=== PATIENT | female | born 1940 | race Caucasian/White ===

== ENCOUNTER 2021-02-20 14:33 | Emergency (ER) | payer MEDICARE, OTHER ==
[~2021-02-20 14:33] MED LIST: AMIODARONE IN DEXTROSE,ISO-OSM 150 MG/100 ML PLAST..BAG IV ONE
[2021-02-20] MEDS ORDERED: SODIUM CHLORIDE 0.9% 1,000 ML IV STA (14:40)
[2021-02-20 14:41] LABS: Glucose,Whole Blood 316 mg/dL (75-99)
[2021-02-20] MEDS ORDERED: DEXTROSE 5% IN WATER 100 ML with AMIODARONE 150 MG IV ONE ×2 (14:55→18:30)
--- NOTE | 2021-02-20 15:10 | XR ---
EXAMINATION TYPE: XR chest 1V portable DATE OF EXAM: 02/20/2021 COMPARISON: NONE HISTORY: Pain TECHNIQUE: Single frontal view of the chest is obtained. FINDINGS: There is no focal air space opacity, pleural effusion, or pneumothorax seen. The cardiac silhouette size is within normal limits. The osseous structures are intact. ET and NG tube noted. H eart is prominent. Hyperinflation suggests COPD thoracic aorta is enlarged measuring 4.8 cm. IMPRESSION: 1. COPD with cardiomegaly correlate for thoracic aortic aneurysm
--- NOTE | 2021-02-20 15:11 | XR ---
EXAMINATION TYPE: XR pelvis AP view DATE OF EXAM: 02/20/2021 CLINICAL HISTORY: Unresponsive. GI bleed. TECHNIQUE: A single AP view of the pelvis is obtained. COMPARISON: None. FINDINGS: Osseous structures are demineralized which is noted to lower radiographic sensitivity. Over lying Watson catheter is felt present. Moderate axial joint space loss both hips with moderate to lucille re bilateral spurring. Pubic symphysis is intact. Sacroiliac joints are preserved. Moderate to severe overlying arterial vascular calcification. No acute displaced pelvic fracture identified. IMPRESSION: As above.
[2021-02-20 15:14] LABS: Basophils # (A) 0.1 k/uL (0-0.2); Basophils % (A) 0 %; Eosinophils % (A) 0 %; HCT 23.3 % (34.0-46.0); Hypochromasia Marked; Lymphocytes # (A) 3.4 k/uL (1.0-4.8); Lymphocytes % (A) 20 %; MCH 27.3 pg (25.0-35.0); MCHC 28.4 g/dL (31.0-37.0); MCV 96.2 fL (80.0-100.0); Mean Platelet Volume 8.4; Monocytes # (A) 0.9 k/uL (0-1.0); Monocytes % (A) 5 %; Neutrophils # (A) 11.9 k/uL (1.3-7.7); Neutrophils % (A) 72 %; Platelet Count 241 k/uL (150-450); RBC 2.42 m/uL (3.80-5.40); RDW 15.9 % (11.5-15.5); WBC 16.5 k/uL (3.8-10.6)
[2021-02-20 15:18] LABS: Calcium 7.4 mg/dL (8.4-10.2); Magnesium 2.2 mg/dL (1.6-2.3); Potassium 5.1 mmol/L (3.5-5.1); Total Bilirubin 0.3 mg/dL (0.2-1.3); Total Protein 4.4 g/dL (6.3-8.2)
[2021-02-20 15:39] LABS: INR 1.2 (<1.2); Partial Thromboplastin Time 35.5 sec (22.0-30.0); Prothrombin Time 12.4 sec (9.0-12.0)
[2021-02-20] MEDS ORDERED: MIDAZOLAM 1 MG/ML 5 ML VIAL IV STA ×2 (15:40→18:42)
[2021-02-20 15:48] LABS: HGB 6.6 gm/dL (11.4-16.0)
--- NOTE | 2021-02-20 16:09 | ED ---
GI Bleed HPI - General Chief complaint: GI Bleed Stated complaint: Unresponsive,GI Bleed Source: EMS Mode of arrival: EMS - History of Present Illness Initial comments: 81 year old female presents with past medical history of hypertension and cataracts who presents to the emergency department. She called EMS for shortness of breath. EMS arrived on scene and found a sick-appearing female that had a bloody emesis on her shirt. She stood up from her chair and promptly went unresponsive. They got her in the back of the ambulance and she was found to be bradycardic and hypotensive. She was completely unresponsive and therefore was intubated using an 8 cm ET tube, 25 cm at the lip. She was given 2 doses of push dose epi and a dose of atropine with improvement in her blood pressures. She had seizure-like activity after intubation and therefore was given 5 mg of Versed by configuration management architect. She arrives to us with a pulse is placed on the vent. Son presents to the hospital and states that he came home from work and found her on well on the couch. He notes some abdominal pain. She was having some vomiting which was grossly bloody. She has not had any complaints previous to this. No previous cardiac history. The remainder of the HPI is limited - Related Data Home Medications Medication Instructions Recorded Confirmed Metoprolol Tartrate [Lopressor] 50 mg PO HS 09/18/15 02/20/21 cloNIDine HCL [Catapres] 0.2 mg PO BID 09/18/15 02/20/21 Ipratropium-Albuterol Nebulize 3 ml INHALATION RT-QID PRN 02/20/21 02/20/21 [Duoneb 0.5 mg-3 mg/3 ml Soln] amLODIPine [Norvasc] 5 mg PO HS 02/20/21 02/20/21 Allergies Allergy/AdvReac Type Severity Reaction Status Date / Time procaine HCl [From Novocain] Allergy passed out Verified 02/20/21 14:52 after novocain in dentist office Review of Systems ROS Statement: Those systems with pertinent positive or pertinent negative responses have been documented in the HPI. ROS Other: All systems not noted in ROS Statement are negative. Past Medical History Past Medical History: Eye Disorder, Hypertension Additional Past Medical History / Comment(s): CATARACTS History of Any Multi-Drug Resistant Organisms: None Reported Past Surgical History: Tonsillectomy Additional Past Surgical History / Comment(s): LUMP REMOVED FROM RIGHT ARM. LT CATARACT REMOVED Past Anesthesia/Blood Transfusion Reactions: No Reported Reaction Additional Past Anesthesia/Blood Transfusion Reaction / Comment(s): PASSED OUT AFTER NOVOCAINE Past Psychological History: No Psychological Hx Reported Smoking Status: Unknown if ever smoked Past Alcohol Use History: None Reported Past Drug Use History: None Reported - Past Family History Mother Family Medical History: Diabetes Mellitus, Myocardial Infarction ([place]) Father Additional Family Medical History / Comment(s): AORTIC ANEURYSM Sister(s) Family Medical History: Diabetes Mellitus Daughter(s) Family Medical History: Diabetes Mellitus General Exam Limitations: altered mental status, physical limitation General appearance: obtunded, in distress Head exam: Present: atraumatic, normocephalic, normal inspection Eye exam: Present: other (4 mm, non reactive) Respiratory exam: Present: normal lung sounds bilaterally, other (bagged). Absent: respiratory distress, wheezes, rales, rhonchi, stridor Cardiovascular Exam: Present: regular rate, irregular rhythm (multiple PVCs with intermittent episodes of nonsustained V. tach), normal heart sounds. Absent: systolic murmur, diastolic murmur, rubs, gallop, clicks GI/Abdominal exam: Present: distended, tenderness, guarding, diminished bowel sounds Rectal exam: Present: decreased rectal tone, heme (-) stool, hemorrhoids Extremities exam: Present: normal inspection, full ROM, normal capillary refill. Absent: tenderness, pedal edema, joint swelling, calf tenderness Neurological exam: Present: altered Skin exam: Present: pallor Course Vital Signs 02/20/21 02/20/21 02/20/21 14:35 14:48 14:53 Temperature 91.9 F L 93.6 F L Pulse Rate 99 108 H 105 H Respiratory 18 14 Rate Blood Pressure 141/89 149/112 92/78 O2 Sat by Pulse 100 Oximetry 02/20/21 02/20/21 02/20/21 15:01 15:06 15:45 Temperature 94.5 F L 94.6 F L 94.3 F L Pulse Rate 89 77 65 Respiratory 14 14 20 Rate Blood Pressure 99/80 112/63 93/52 O2 Sat by Pulse 99 100 100 Oximetry 02/20/21 02/20/21 02/20/21 15:56 16:08 16:18 Temperature 94.5 F L 94.3 F L Pulse Rate 65 65 63 Respiratory 20 20 22 Rate Blood Pressure 81/42 90/53 113/67 O2 Sat by Pulse 100 100 Oximetry 02/20/21 02/20/21 02/20/21 16:25 16:31 16:41 Temperature 94.3 F L 94.1 F L 94.1 F L Pulse Rate 64 64 61 Respiratory 22 20 20 Rate Blood Pressure 110/65 109/66 125/74 O2 Sat by Pulse 100 100 100 Oximetry 02/20/21 02/20/21 02/20/21 17:21 18:21 18:48 Temperature 95.5 F L Pulse Rate 65 79 68 Respiratory 16 20 28 H Rate Blood Pressure 106/71 112/66 143/74 O2 Sat by Pulse 100 100 100 Oximetry - Reevaluation(s) Reevaluation #1: Speaking with Dr. Fletcher - looking at images and will call back 02/20/21 1415 Reevaluation #2: Speaking with Dr. Fletcher - does not believe the patient has a ruptured AAA but ischemic bowel. Recommending general surgery consult or transfer to higher level of care ideally 02/20/21 1647 Reevaluation #3: 02/20/21 17:39 Calling [facility] for transfer. 02/20/21 17:52 Not accepting transfers Reevaluation #4: Spoke with Dr. Galeano - states he will not operate on the patient without a vascular surgeon available and capable of handling ruptured AAA 02/20/21 17:[address] Fletcher - believes this is a general surgery issue and needs to be deferred to general surgeon 02/20/21 20:36 Reevaluation #5: 02/20/21 18:28 [facility] called back - spoke with Dr. Carrero - patient will be transported to [facility] CAT 1 Medical Decision Making - Medical Decision Making On arrival patient is placed in trauma bay 1. A thorough exam is performed. She does have stable blood pressure and pulse at this time. A bedside ultrasoun d is performed which does demonstrate an enlarged aorta measuring 5.0 cm. abdomen is tense. Laboratory studies are conducted. Patient did receive 2 L of fluid prehospital. Patient is type and crossmatch for 2 units. OG tube was placed which does have 500 mL of dark bloody fluid return. Patient does go for CT of her brain, cervical spine as well as chest abdomen pelvis angio. Patient does have an episode of nonsustained V. tach. She was given 150 mL bolus of amiodarone. 3 studies are obtained white count is 16.5. Hemoccult and 6.6. INR 1.2. CO2 is 7. A lactic acid 14.2. Stool occult is negative for blood. Gastric occult is positive. CT of the brain and x-rays of acute renal hem orrhage, mass effect or midline shift. Patient does have some movement on the vent and therefore 2 mg of Versed is ordered every [address] of the patient's abdomen and pelvis demonstrates abdominal aortic aneurysm rupture with abnormal heterogenicity outside the calcified rim of the AAA. Internal air with an aortic lumen concerning for fistulous claudication to the adjacent duodenum. Abnormal wall thickening prominence of small bowel loops throughout the abdomen into the pelvis concerning for developing ischemic change. I did call and speak with Dr. Fletcher. He feels that the patient is suffering from ischemic bowel and not ruptured AAA. I spoke then with Dr. Galeano who is concerned for AAA. Both surgeons feel that the patient needs higher level of care. I did call and leave the patients info with Scout Jarvis. A call was then made to Rosanne who refused patient. I was on the line with Leena when I did receive a call back from Scout Jarvis accepting the patient. Accepting physician is Dr. Carrero and Dr. Bernardo - patient will go to [facility]. Sons updated as to poor prognosis. - Lab Data Result diagrams: 02/20/21 14:35 02/20/21 14:35 Lab Results 02/20/21 02/20/21 02/20/21 Range/Units 14:35 14:35 14:35 WBC 16.5 H (3.8-10.6) k/uL RBC 2.42 L (3.80-5.40) m/uL Hgb 6.6 L* (11.4-16.0) gm/dL Hct 23.3 L (34.0-46.0) % MCV 96.2 (80.0-100.0) fL MCH 27.3 (25.0-35.0) pg MCHC 28.4 L (31.0-37.0) g/dL RDW 15.9 H (11.5-15.5) % Plt Count 241 (150-450) k/uL MPV 8.4 Neutrophils % 72 % Lymphocytes % 20 % Monocytes % 5 % Eosinophils % 0 % Basophils % 0 % Neutrophils # 11.9 H (1.3-7.7) k/uL Lymphocytes # 3.4 (1.0-4.8) k/uL Monocytes # 0.9 (0-1.0) k/uL Eosinophils # 0.0 (0-0.7) k/uL Basophils # 0.1 (0-0.2) k/uL Hypochromasia Marked PT 12.4 H (9.0-12.0) sec INR 1.2 H (<1.2) APTT 35.5 H (22.0-30.0) sec Sample Site ABG pH (7.35-7.45) ABG pCO2 (35-45) mmHg ABG pO2 (83-108) mmHg ABG HCO3 (21-25) mmol/L ABG Total CO2 (19-24) mmol/L ABG O2 Saturation (94-97) % ABG Base Excess mmol/L Jose Test FiO2 % Sodium 138 (137-145) mmol/L Potassium 5.1 (3.5-5.1) mmol/L Chloride 113 H (98-107) mmol/L Carbon Dioxide 7 L* (22-30) mmol/L Anion Gap 18 mmol/L BUN 14 (7-17) mg/dL Creatinine 1.09 H (0.52-1.04) mg/dL Est GFR (CKD-EPI)AfAm 56 (>60 ml/min/1.73 sqM) Est GFR (CKD-EPI)NonAf 49 (>60 ml/min/1.73 sqM) Glucose 276 H (74-99) mg/dL POC Glucose (mg/dL) (75-99) mg/dL POC Glu Assistant Head Cashier ID Lactic Ac Sepsis Rflx Plasma Lactic Acid Efren (0.7-2.0) mmol/L Calcium 7.4 L (8.4-10.2) mg/dL Magnesium 2.2 (1.6-2.3) mg/dL Total Bilirubin 0.3 (0.2-1.3) mg/dL AST 20 (14-36) U/L ALT 20 (4-34) U/L Alkaline Phosphatase 59 (38-126) U/L Troponin I (0.000-0.034) ng/mL Total Protein 4.4 L (6.3-8.2) g/dL Albumin 2.0 L (3.5-5.0) g/dL Lipase 62 (23-300) U/L Gastric Occult Blood (Negative) Stool Occult Blood (Negative) Coronavirus (PCR) (Not Detectd) Blood Type Blood Type Recheck Bld Type Recheck Status Antibody Screen Crossmatch Spec Expiration Date 02/20/21 02/20/21 02/20/21 Range/Units 14:35 14:35 14:35 WBC (3.8-10.6) k/uL RBC (3.80-5.40) m/uL Hgb (11.4-16.0) gm/dL Hct (34.0-46.0) % MCV (80.0-100.0) fL MCH (25.0-35.0) pg MCHC (31.0-37.0) g/dL RDW (11.5-15.5) % Plt Count (150-450) k/uL MPV Neutrophils % % Lymphocytes % % Monocytes % % Eosinophils % % Basophils % % Neutrophils # (1.3-7.7) k/uL Lymphocytes # (1.0-4.8) k/uL Monocytes # (0-1.0) k/uL Eosinophils # (0-0.7) k/uL Basophils # (0-0.2) k/uL Hypochromasia PT (9.0-12.0) sec INR (<1.2) APTT (22.0-30.0) sec Sample Site ABG pH (7.35-7.45) ABG pCO2 (35-45) mmHg ABG pO2 (83-108) mmHg ABG HCO3 (21-25) mmol/L ABG Total CO2 (19-24) mmol/L ABG O2 Saturation (94-97) % ABG Base Excess mmol/L Jose Test FiO2 % Sodium (137-145) mmol/L Potassium (3.5-5.1) mmol/L Chloride (98-107) mmol/L Carbon Dioxide (22-30) mmol/L Anion Gap mmol/L BUN (7-17) mg/dL Creatinine (0.52-1.04) mg/dL Est GFR (CKD-EPI)AfAm (>60 ml/min/1.73 sqM) Est GFR (CKD-EPI)NonAf (>60 ml/min/1.73 sqM) Glucose (74-99) mg/dL POC Glucose (mg/dL) (75-99) mg/dL POC Glu Assistant Head Cashier ID Lactic Ac Sepsis Rflx Plasma Lactic Acid Efren 14.2 H* (0.7-2.0) mmol/L Calcium (8.4-10.2) mg/dL Magnesium (1.6-2.3) mg/dL Total Bilirubin (0.2-1.3) mg/dL AST (14-36) U/L ALT (4-34) U/L Alkaline Phosphatase (38-126) U/L Troponin I 0.019 (0.000-0.034) ng/mL Total Protein (6.3-8.2) g/dL Albumin (3.5-5.0) g/dL Lipase (23-300) U/L Gastric Occult Blood (Negative) Stool Occult Blood Negative (Negative) Coronavirus (PCR) (Not Detectd) Blood Type Blood Type Recheck Bld Type Recheck Status Antibody Screen Crossmatch Spec Expiration Date 02/20/21 02/20/21 02/20/21 Range/Units 14:35 14:37 15:00 WBC (3.8-10.6) k/uL RBC (3.80-5.40) m/uL Hgb (11.4-16.0) gm/dL Hct (34.0-46.0) % MCV (80.0-100.0) fL MCH (25.0-35.0) pg MCHC (31.0-37.0) g/dL RDW (11.5-15.5) % Plt Count (150-450) k/uL MPV Neutrophils % % Lymphocytes % % Monocytes % % Eosinophils % % Basophils % % Neutrophils # (1.3-7.7) k/uL Lymphocytes # (1.0-4.8) k/uL Monocytes # (0-1.0) k/uL Eosinophils # (0-0.7) k/uL Basophils # (0-0.2) k/uL Hypochromasia PT (9.0-12.0) sec INR (<1.2) APTT (22.0-30.0) sec Sample Site ABG pH (7.35-7.45) ABG pCO2 (35-45) mmHg ABG pO2 (83-108) mmHg ABG HCO3 (21-25) mmol/L ABG Total CO2 (19-24) mmol/L ABG O2 Saturation (94-97) % ABG Base Excess mmol/L Jose Test FiO2 % Sodium (137-145) mmol/L Potassium (3.5-5.1) mmol/L Chloride (98-107) mmol/L Carbon Dioxide (22-30) mmol/L Anion Gap mmol/L BUN (7-17) mg/dL Creatinine (0.52-1.04) mg/dL Est GFR (CKD-EPI)AfAm (>60 ml/min/1.73 sqM) Est GFR (CKD-EPI)NonAf (>60 ml/min/1.73 sqM) Glucose (74-99) mg/dL POC Glucose (mg/dL) 316 H (75-99) mg/dL POC Glu Assistant Head Cashier ID Roselia Schuster Lactic Ac Sepsis Rflx Plasma Lactic Acid Efren (0.7-2.0) mmol/L Calcium (8.4-10.2) mg/dL Magnesium (1.6-2.3) mg/dL Total Bilirubin (0.2-1.3) mg/dL AST (14-36) U/L ALT (4-34) U/L Alkaline Phosphatase (38-126) U/L Troponin I (0.000-0.034) ng/mL Total Protein (6.3-8.2) g/dL Albumin (3.5-5.0) g/dL Lipase (23-300) U/L Gastric Occult Blood Positive (Negative) Stool Occult Blood (Negative) Coronavirus (PCR) (Not Detectd) Blood Type O Negative Blood Type Recheck O Neg Bld Type Recheck Status No Antibody Screen NEGATIVE Crossmatch See Detail Spec Expiration Date 02/23/2021 - 233402/20/21 02/20/21 02/20/21 Range/Units 15:30 16:17 18:20 WBC (3.8-10.6) k/uL RBC (3.80-5.40) m/uL Hgb (11.4-16.0) gm/dL Hct (34.0-46.0) % MCV (80.0-100.0) fL MCH (25.0-35.0) pg MCHC (31.0-37.0) g/dL RDW (11.5-15.5) % Plt Count (150-450) k/uL MPV Neutrophils % % Lymphocytes % % Monocytes % % Eosinophils % % Basophils % % Neutrophils # (1.3-7.7) k/uL Lymphocytes # (1.0-4.8) k/uL Monocytes # (0-1.0) k/uL Eosinophils # (0-0.7) k/uL Basophils # (0-0.2) k/uL Hypochromasia PT (9.0-12.0) sec INR (<1.2) APTT (22.0-30.0) sec Sample Site RAD ABG pH 7.25 L (7.35-7.45) ABG pCO2 30 L (35-45) mmHg ABG pO2 390 H (83-108) mmHg ABG HCO3 13 L (21-25) mmol/L ABG Total CO2 14 L (19-24) mmol/L ABG O2 Saturation 100.0 H (94-97) % ABG Base Excess -14.3 mmol/L Jose Test Yes FiO2 100 % Sodium (137-145) mmol/L Potassium (3.5-5.1) mmol/L Chloride (98-107) mmol/L Carbon Dioxide (22-30) mmol/L Anion Gap mmol/L BUN (7-17) mg/dL Creatinine (0.52-1.04) mg/dL Est GFR (CKD-EPI)AfAm (>60 ml/min/1.73 sqM) Est GFR (CKD-EPI)NonAf (>60 ml/min/1.73 sqM) Glucose (74-99) mg/dL POC Glucose (mg/dL) (75-99) mg/dL POC Glu Assistant Head Cashier ID Lactic Ac Sepsis Rflx Y Plasma Lactic Acid Efren (0.7-2.0) mmol/L Calcium (8.4-10.2) mg/dL Magnesium (1.6-2.3) mg/dL Total Bilirubin (0.2-1.3) mg/dL AST (14-36) U/L ALT (4-34) U/L Alkaline Phosphatase (38-126) U/L Troponin I (0.000-0.034) ng/mL Total Protein (6.3-8.2) g/dL Albumin (3.5-5.0) g/dL Lipase (23-300) U/L Gastric Occult Blood (Negative) Stool Occult Blood (Negative) Coronavirus (PCR) Not Detected (Not Detectd) Blood Type Blood Type Recheck Bld Type Recheck Status Antibody Screen Crossmatch Spec Expiration Date - EKG Data EKG Comments: EKG demonstrates a sinus rhythm with PVCs. Rate of 98. NJ interval 162. QRS 126. QTC of 469. ST depression V2 through V6 as well as 2, 3 and aVF Critical Care Time Critical Care Time: Yes Critical Care Time: 110 minutes of critical care time Disposition Clinical Impression: AAA (abdominal aortic aneurysm), Ischemic bowel disease, Lactic acid acidosis, Leukocytosis, Nonsustained ventricular tachycardia Disposition: OTHER INSTITUTION NOT DEFINED Condition: Critical Is patient prescribed a controlled substance at d/c from ED?: No Referrals: Joel Ruiz MD [Primary Care Provider] - 1-2 days - Out of Hospital Transfer - Req. Specs Out of Hospital Transfer - Requested Specifics: Other Emergency Center ([facility] - CAT 1)
--- NOTE | 2021-02-20 16:18 | CT ---
EXAMINATION TYPE: CT angio abdomen pelvis DATE OF EXAM: 02/20/2021 HISTORY: unresponsive, rule out dissection. GI bleed. Anemia. CT DLP: 1096.3mGycm Automated Exposure Control for Dose Reduction was Utilized. CONTRAST: CTA scan of the abdomen and pelvis is performed without oral and without and with IV Contrast, patien t injected with 100 mL of Isovue 370. Three-D reconstructed images are created on an independent work station and reviewed. COMPARISON: None. FINDINGS: Vascular: There is AAA with rim calcification showing abnormal heterogeneous density surrounding the rim calcification. There are foci of internal air within the AAA. Aneurysm measures up to 5.3 cm nassar sversely axial image 29. Postcontrast images show patency through the iliac bifurcation with signific ant portion showing nonopacification. No aneurysm extension into the iliac arteries bilaterally. Marianne re calcified plaque into the iliac branch vessels is seen. Significant stenosis in the external iliac arteries bilaterally is likely present. Patent celiac artery and SMA before the aneurysm. No free ai r. No portal venous air. LUNG BASES: Small to tiny pericardial effusion. Coronary artery calcification and/or stents are seen. LIVER/GB: No significant abnormality is appreciated. PANCREAS: Moderate fat replacement atrophy of pancreas. SPLEEN: No significant abnormality is seen. ADRENALS: No significant abnormality is seen. KIDNEYS: Some cortical thinning bilaterally with a few simple-appearing thin-walled cysts scattered t hroughout both kidneys. Watson catheter decompresses bladder. BOWEL: Prominent fluid filled small bowel loops with moderate concentric wall thickening. UTERUS/ADNEXA: No gross abnormality seen. LYMPH NODES: No greater than 1cm abdominal or pelvic lymph nodes are appreciated. OSSEOUS STRUCTURES: No significant abnormality is seen. OTHER: Exam slightly suboptimal as delayed phase imaging not performed. IMPRESSION: Suboptimal study but there is evidence of abdominal aortic aneurysm rupture with abnormal heterogeneous density outside the rim calcified AAA. Internal air within aortic lumen is concerning for fistulous communication to the adjacent duodenum. Abnormal wall thickening and prominence of smal l bowel loops throughout the abdomen into pelvis is concerning for developing ischemic change. Critical results communicated to ordering ER physician via telephone at time of dictation
[2021-02-20 16:20] LABS: ABG Base Excess -14.3 mmol/L; ABG HCO3 13 mmol/L (21-25); ABG PCO2 30 mmHg (35-45); ABG PH 7.25 (7.35-7.45); ABG PO2 390 mmHg (83-108); ABG TCO2 14 mmol/L (19-24); Allen Test Performed? Yes
--- NOTE | 2021-02-20 16:21 | CT ---
EXAMINATION TYPE: CT brain cspine wo con DATE OF EXAM: 02/20/2021 COMPARISON: HISTORY: unresponsive CT DLP: 1369 mGycm Automated exposure control for dose reduction was used. TECHNIQUE: CT scan of the head and cervical spine are performed without contrast. FINDINGS: There is no acute intracranial hemorrhage, mass effect, or midline shift identified. Gene ralized degenerative change noted and there is atherosclerotic vascular. Low-attenuation white matter are suggestive of vascular ischemia. Ventricular ischemia not excluded. Correlate with MRI or midlin e shift or mass effect. The orbits are symmetric. Craniocervical junction maintained. ET and NG tube noted. Odontoid appears intact. There is multilevel severe degenerative disc disease a nd facet arthropathy. Assessment spinal canal nondiagnostic due to resolution and artifact. Multileve l canal stenosis and foraminal encroachment. No definite acute fracture. Carotid artery atherosclerot ic changes are noted. Ectasia of the visualized thoracic aorta. Similar changes involving the lung ap ices with right pleural thickening. There is a deformity of the inferior margin of the clivus. IMPRESSION: 1. There is no acute fracture or dislocation evident in the cervical spine. Multilevel severe degener ative disc disease and facet arthropathy. Multilevel canal stenosis suspected. 2. No acute intracranial hemorrhage, mass effect, or midline shift is seen. Degenerative and nonspeci fic white matter changes most typical remote ischemia.
[2021-02-20] MEDS: MIDAZOLAM 1 MG/ML 5 ML VIAL IV PRN ×2 (16:42→17:51)
[2021-02-20] MEDS ORDERED: PIPERACILLIN-TAZOBACTAM 3.375 GM in SODIUM CHLORIDE 0.9% 100 ML IVPB STA (17:01)
[2021-02-20] MEDS ORDERED: AMIODARONE IN DEXTROSE,ISO-OSM 150 MG/100 ML PLAST..BAG IV ONE (18:35)
[2021-02-20] MEDS ORDERED: fentaNYL (PF) 50 MCG/ML 5 ML AMP IV STA ×2 (18:47→18:53)
[2021-02-20 18:49] VITALS: BP 143/74; PULSE 68; RESP 28
[2021-02-20 18:52] VITALS: TEMP 95.5
[2021-02-20] MEDS ORDERED: fentaNYL (PF) 50 MCG/ML 2 ML AMP IVP PRN (19:00)
--- NOTE | 2021-02-20 19:54 | P.GSCN ---
History of Present Illness Consult date: 02/20/21 History of present illness: Patient seen and examined at bedside. She was intubated but responsive. She was found down at home with large amount of blood being coughed up per sons who are at the bedside with her. There is an NGT in place with continuous blood bieng suctioned at this time. Canister full of blood. General surgery was consulted for concern for ischemic bowel. Past Medical History Past Medical History: Eye Disorder, Hypertension Additional Past Medical History / Comment(s): CATARACTS History of Any Multi-Drug Resistant Organisms: None Reported Past Surgical History: Tonsillectomy Additional Past Surgical History / Comment(s): LUMP REMOVED FROM RIGHT ARM. LT CATARACT REMOVED Past Anesthesia/Blood Transfusion Reactions: No Reported Reaction Additional Past Anesthesia/Blood Transfusion Reaction / Comm: PASSED OUT AFTER NOVOCAINE Past Psychological History: No Psychological Hx Reported Smoking Status: Unknown if ever smoked Past Alcohol Use History: None Reported Past Drug Use History: None Reported - Past Family History Mother Family Medical History: Diabetes Mellitus, Myocardial Infarction ([place]) Father Additional Family Medical History / Comment(s): AORTIC ANEURYSM Sister(s) Family Medical History: Diabetes Mellitus Daughter(s) Family Medical History: Diabetes Mellitus Medications and Allergies Home Medications Medication Instructions Recorded Confirmed Type Metoprolol Tartrate [Lopressor] 50 mg PO HS 09/18/15 02/20/21 History cloNIDine HCL [Catapres] 0.2 mg PO BID 09/18/15 02/20/21 History Ipratropium-Albuterol Nebulize 3 ml INHALATION RT-QID PRN 02/20/21 02/20/21 History [Duoneb 0.5 mg-3 mg/3 ml Soln] amLODIPine [Norvasc] 5 mg PO HS 02/20/21 02/20/21 History Allergies Allergy/AdvReac Type Severity Reaction Status Date / Time procaine HCl [From Novocain] Allergy passed out Verified 02/20/21 14:52 after novocain in dentist office Surgical - Exam Osteopathic Statement: *. No significant issues noted on an osteopathic struc tural exam other than those noted in the History and Physical/Consult. Vital Signs Pulse Resp BP Pulse Ox 99 18 141/89 100 02/20/21 14:35 02/20/21 14:35 02/20/21 14:35 02/20/21 14:35 - General moderate distress - Eyes PERRL - Neck trachea midline - Respiratory intubated - Abdomen Soft, Mild distention, tender to palpation mid epigastric but no peritoneal signs. No rebound no rigidity no guarding - Psychiatric responds but is on vent Results - Labs 02/20/21 14:35 02/20/21 14:35 Abnormal Lab Results - Last 24 Hours (Table) 02/20/21 02/20/21 02/20/21 Range/Units 14:35 14:35 14:35 WBC 16.5 H (3.8-10.6) k/uL RBC 2.42 L (3.80-5.40) m/uL Hgb 6.6 L* (11.4-16.0) gm/dL Hct 23.3 L (34.0-46.0) % MCHC 28.4 L (31.0-37.0) g/dL RDW 15.9 H (11.5-15.5) % Neutrophils # 11.9 H (1.3-7.7) k/uL PT 12.4 H (9.0-12.0) sec INR 1.2 H (<1.2) APTT 35.5 H (22.0-30.0) sec ABG pH (7.35-7.45) ABG pCO2 (35-45) mmHg ABG pO2 (83-108) mmHg ABG HCO3 (21-25) mmol/L ABG Total CO2 (19-24) mmol/L ABG O2 Saturation (94-97) % Chloride 113 H (98-107) mmol/L Carbon Dioxide 7 L* (22-30) mmol/L Creatinine 1.09 H (0.52-1.04) mg/dL Glucose 276 H (74-99) mg/dL POC Glucose (mg/dL) (75-99) mg/dL Plasma Lactic Acid Efren (0.7-2.0) mmol/L Calcium 7.4 L (8.4-10.2) mg/dL Total Protein 4.4 L (6.3-8.2) g/dL Albumin 2.0 L (3.5-5.0) g/dL Crossmatch 02/20/21 02/20/21 02/20/21 Range/Units 14:35 14:35 14:37 WBC (3.8-10.6) k/uL RBC (3.80-5.40) m/uL Hgb (11.4-16.0) gm/dL Hct (34.0-46.0) % MCHC (31.0-37.0) g/dL RDW (11.5-15.5) % Neutrophils # (1.3-7.7) k/uL PT (9.0-12.0) sec INR (<1.2) APTT (22.0-30.0) sec ABG pH (7.35-7.45) ABG pCO2 (35-45) mmHg ABG pO2 (83-108) mmHg ABG HCO3 (21-25) mmol/L ABG Total CO2 (19-24) mmol/L ABG O2 Saturation (94-97) % Chloride (98-107) mmol/L Carbon Dioxide (22-30) mmol/L Creatinine (0.52-1.04) mg/dL Glucose (74-99) mg/dL POC Glucose (mg/dL) 316 H (75-99) mg/dL Plasma Lactic Acid Efren 14.2 H* (0.7-2.0) mmol/L Calcium (8.4-10.2) mg/dL Total Protein (6.3-8.2) g/dL Albumin (3.5-5.0) g/dL Crossmatch See Detail 02/20/21 Range/Units 16:17 WBC (3.8-10.6) k/uL RBC (3.80-5.40) m/uL Hgb (11.4-16.0) gm/dL Hct (34.0-46.0) % MCHC (31.0-37.0) g/dL RDW (11.5-15.5) % Neutrophils # (1.3-7.7) k/uL PT (9.0-12.0) sec INR (<1.2) APTT (22.0-30.0) sec ABG pH 7.25 L (7.35-7.45) ABG pCO2 30 L (35-45) mmHg ABG pO2 390 H (83-108) mmHg ABG HCO3 13 L (21-25) mmol/L ABG Total CO2 14 L (19-24) mmol/L ABG O2 Saturation 100.0 H (94-97) % Chloride (98-107) mmol/L Carbon Dioxide (22-30) mmol/L Creatinine (0.52-1.04) mg/dL Glucose (74-99) mg/dL POC Glucose (mg/dL) (75-99) mg/dL Plasma Lactic Acid Efren (0.7-2.0) mmol/L Calcium (8.4-10.2) mg/dL Total Protein (6.3-8.2) g/dL Albumin (3.5-5.0) g/dL Crossmatch Diabetes panel 02/20/21 Range/Units 14:35 Sodium 138 (137-145) mmol/L Potassium 5.1 (3.5-5.1) mmol/L Chloride 113 H (98-107) mmol/L Carbon Dioxide 7 L* (22-30) mmol/L BUN 14 (7-17) mg/dL Creatinine 1.09 H (0.52-1.04) mg/dL Glucose 276 H (74-99) mg/dL Calcium 7.4 L (8.4-10.2) mg/dL AST 20 (14-36) U/L ALT 20 (4-34) U/L Alkaline Phosphatase 59 (38-126) U/L Total Protein 4.4 L (6.3-8.2) g/dL Albumin 2.0 L (3.5-5.0) g/dL Calcium panel 02/20/21 Range/Units 14:35 Calcium 7.4 L (8.4-10.2) mg/dL Albumin 2.0 L (3.5-5.0) g/dL Pituitary panel 02/20/21 Range/Units 14:35 Sodium 138 (137-145) mmol/L Potassium 5.1 (3.5-5.1) mmol/L Chloride 113 H (98-107) mmol/L Carbon Dioxide 7 L* (22-30) mmol/L BUN 14 (7-17) mg/dL Creatinine 1.09 H (0.52-1.04) mg/dL Glucose 276 H (74-99) mg/dL Calcium 7.4 L (8.4-10.2) mg/dL Adrenal panel 12/17/21 Range/Units 14:35 Sodium 138 (137-145) mmol/L Potassium 5.1 (3.5-5.1) mmol/L Chloride 113 H (98-107) mmol/L Carbon Dioxide 7 L* (22-30) mmol/L BUN 14 (7-17) mg/dL Creatinine 1.09 H (0.52-1.04) mg/dL Glucose 276 H (74-99) mg/dL Calcium 7.4 L (8.4-10.2) mg/dL Total Bilirubin 0.3 (0.2-1.3) mg/dL AST 20 (14-36) U/L ALT 20 (4-34) U/L Alkaline Phosphatase 59 (38-126) U/L Total Protein 4.4 L (6.3-8.2) g/dL Albumin 2.0 L (3.5-5.0) g/dL Assessment and Plan Assessment: gi bleed Aorto-enteric fistula Plan: 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 Also concern for ruptured AAA. She does have some thickened small bowel, this is mostly duodenum and proximal jejunum. At this time Patients primary problem is the large upper gi bleed likely secondary to the aorto-enteric fistula. I recommended urgent vascular surgery evaluation. I recommend aggressive resuscitation and transfer to a higher level of care.
== END 2021-02-20 19:39 | disposition other institution (70) ==
LOC: EC 14:33
DX: I71.4 Abdominal aortic aneurysm, without rupture (principal); K55.8 Other vascular disorders of intestine; E87.2 Acidosis; D72.829 Elevated white blood cell count, unspecified; I47.2 Ventricular tachycardia; I10 Essential (primary) hypertension; Z20.822 Contact with and (suspected) exposure to COVID-19
CPT/HCPCS: 99291; 99292 ×2; 96365; 96375; 96376; 36415; 36600; 93005; 86900; 86901; 80053; 82805; 83605; 83690; 83735; 84484; 85025; 85610; 85730; 86850; 86920; 82272; 82271; 87635; 72170; 71045; 72125; 70450; 74174; P9016; J2543; J3010; J2250; Q9967; J0282

== ENCOUNTER 2024-05-05 15:21 | Inpatient (IN) | payer MEDICARE ==
[2024-05-05 15:31] LABS: Glucose,Whole Blood 217 mg/dL (70-110)
[2024-05-05] MEDS: SODIUM CHLORIDE 0.9% 1,000 ML IV STA (15:37)
--- NOTE | 2024-05-05 15:46 | ED ---
General Adult HPI - General Chief complaint: Shortness of Breath Stated complaint: AMS Time Seen by Provider: 05/05/24 15:25 Source: patient, EMS, RN notes reviewed, old records reviewed Mode of arrival: EMS Limitations: altered mental status - History of Present Illness Initial comments: 84-year-old female presenting with altered mental status. History very limited on this patient, paramedics were unable to obtain IV access, unable to obtain blood pressure prior to arrival. Apparently the patient became acutely altered within the past several hours. Family stated to paramedics that they thought that the patient was dying. And stated that her wishes were to be a DNR. - Related Data Home Medications Medication Instructions Recorded Confirmed Metoprolol Tartrate [Lopressor] 50 mg PO HS 09/18/15 02/20/21 cloNIDine HCL [Catapres] 0.2 mg PO BID 09/18/15 02/20/21 Ipratropium-Albuterol Nebulize 3 ml INHALATION RT-QID PRN 02/20/21 02/20/21 [Duoneb 0.5 mg-3 mg/3 ml Soln] amLODIPine [Norvasc] 5 mg PO HS 02/20/21 02/20/21 Allergies Allergy/AdvReac Type Severity Reaction Status Date / Time procaine HCl [From Novocain] Allergy passed out Verified 02/20/21 14:52 after novocain in dentist office Review of Systems ROS Statement: Those systems with pertinent positive or pertinent negative responses have been documented in the HPI. ROS Other: All systems not noted in ROS Statement are negative. Past Medical History Past Medical History: Eye Disorder, Hypertension Additional Past Medical History / Comment(s): CATARACTS History of Any Multi-Drug Resistant Organisms: None Reported Past Surgical History: Tonsillectomy Additional Past Surgical History / Comment(s): LUMP REMOVED FROM RIGHT ARM. LT CATARACT REMOVED Past Anesthesia/Blood Transfusion Reactions: No Reported Reaction Additional Past Anesthesia/Blood Transfusion Reaction / Comment(s): PASSED OUT AFTER NOVOCAINE Past Psychological History: No Psychological Hx Reported Smoking Status: Unknown if ever smoked Past Alcohol Use History: None Reported Past Drug Use History: None Reported - Past Family History Mother Family Medical History: Diabetes Mellitus, Myocardial Infarction ([place]) Father Additional Family Medical History / Comment(s): AORTIC ANEURYSM Sister(s) Family Medical History: Diabetes Mellitus Daughter(s) Family Medical History: Diabetes Mellitus General Exam Limitations: altered mental status General appearance: lethargic, in distress Eye exam: Present: normal appearance, PERRL ENT exam: Present: mucous membranes dry Neck exam: Present: normal inspection. Absent: tenderness, meningismus Respiratory exam: Present: respiratory distress, rhonchi Cardiovascular Exam: Present: regular rate, normal rhythm GI/Abdominal exam: Present: soft. Absent: distended, tenderness Extremities exam: Present: pedal edema Neurological exam: Absent: alert, oriented X3 Skin exam: Present: cyanosis Course Vital Signs 05/05/24 05/05/24 05/05/24 15:23 15:45 16:07 Temperature 86.2 F L Pulse Rate 70 Respiratory 24 22 Rate Blood Pressure 61/37 O2 Sat by Pulse 88 L Oximetry Fraction of 80 Inspired Oxygen (FIO2) 05/05/24 05/05/24 16:26 17:51 Temperature 86.5 F L 30.6 F L Pulse Rate 70 78 Respiratory Rate Blood Pressure 75/65 93/48 O2 Sat by Pulse 94 L Oximetry Fraction of Inspired Oxygen (FIO2) - Reevaluation(s) Reevaluation #1: 05/05/24 1607 I confirmed with the son and the patient's goals of care. He states that she would not want aggressive measures, no life support, no ventilator, no surgery. Medical Decision Making - Medical Decision Making Was pt. sent in by a medical professional or institution (, PA, GRADUATE INTERN, urgent care, hospital, or usp...) When possible be specific @ -No Did you speak to anyone other than the patient for history (EMS, parent, family, police, friend...)? What history was obtained from this source @ -Case discussed at length with both sons were present, patient is a DNR and ultimately decision made for comfort measures. Did you review nursing and triage notes (agree or disagree)? Why? @ -I reviewed and agree with nursing and triage notes Were old charts reviewed (outside hosp., previous admission, EMS record, old EKG, old radiological studies, urgent care reports/EKG's, usp records)? Report findings @ -No old charts were reviewed Differential Altered Mental Status: Hypoglycemia, DKA, hypercapnia, ETOH, overdose, CO poisoning, trauma, myxedema coma, HTN encephalopathy, infection, encephalitis, psychosis, intercranial hemorrhage, hepatic encephalopathy, meningitis, CVA, this is not meant to be an all-inclusive list EKG interpreted by me (3pts min.). @ -Paced rhythm rate of 76 QRS duration 257, QTc 637 X-rays interpreted by me (1pt min.). @ -None done CT interpreted by me (1pt min.). @ -None done U/S interpreted by me (1pt. min.). @ -None done What testing was considered but not performed or refused? (CT, X-rays, U/S, labs)? Why? @ -None What meds were considered but not given or refused? Why? @ -None Did you discuss the management of the patient with other professionals (professionals i.e. , PA, GRADUATE INTERN, lab, RT, psych nurse, manager social services, consumer marketing analyst, teacher, chief scientific officer, manager rn case)? Give summary @Case discussed with Dr. Ruiz who will admit Was smoking cessation discussed for >3mins.? @ -No Was critical care preformed (if so, how long)? @Yes 35 minutes Were there social determinants of health that impacted care today? How? (Homelessness, low income, unemployed, alcoholism, drug addiction, transportation, low edu. Level, literacy, decrease access to med. care, custodial, rehab)? @ -No Was there de-escalation of care discussed even if they declined (Discuss DNR or withdrawal of care, Hospice)? DNR status @ -No What co-morbidities impacted this encounter? (DM, HTN, Smoking, COPD, CAD, Cancer, CVA, ARF, Chemo, Hep., AIDS, mental health diagnosis, sleep apnea, morbid obesity)? @Hypertension, aortic aneurysm Was patient admitted / discharged? Hospital course, mention meds given and route, prescriptions, significant lab abnormalities, going to OR and other pertinent info. @ -84-year-old female presenting in extremis. Patient is hypoxic, hypothermic, hypotensive. She is edematous throughout with increased work of breathing. Initial resuscitation is administered and family is contacted regarding the goals of care. Son does indicate that the patient is a DNR and would not like aggressive measures. Patient did receive laboratory testing in the emergency department which showed significant abnormalities including a high lactic acid, elevated troponin, significantly elevated BNP. Chest x-ray shows bilateral pleural effusion. Chest x-ray showing bilateral pleural effusion. Patient was given prophylactic antibiotics, administered steroids and fluid bolus. She is in multiorgan failure, congestive heart failure, renal failure. TSH is elevated, free T4 is pending. Ultimately decision is made to keep the patient comfortable. Undiagnosed new problem with uncertain prognosis? @ -No Drug Therapy requiring intensive monitoring for toxicity (Heparin, Nitro, Insulin, Cardizem)? @ -No Were any procedures done? @ -No Diagnosis/symptom? @ -Multiorgan failure, likely end-of-life, congestive heart failure, troponin elevation, JUAN ANTONIO, hypothermia Acute, or Chronic, or Acute on Chronic? @ -Acute Uncomplicated (without systemic symptoms) or Complicated (systemic symptoms)? @ -[Complicated Side effects of treatment? @ -No Exacerbation, Progression, or Severe Exacerbation? @ -No Poses a threat to life or bodily function? How? (Chest pain, [place], [place], pneumonia, PE, COPD, DKA, ARF, appy, cholecystitis, CVA, Diverticulitis, Homicidal, Suicidal, threat to staff... and all critical care pts) @Yes, likely end-of-life - Lab Data Result diagrams: 05/05/24 16:48 05/05/24 15:58 Lab Results 05/05/24 05/05/24 05/05/24 Range/Units 15:29 15:58 15:58 WBC (3.8-10.6) k/uL RBC (3.80-5.40) m/uL Hgb (11.4-16.0) gm/dL Hct (34.0-46.0) % MCV (80.0-100.0) fL MCH (25.0-35.0) pg MCHC (31.0-37.0) g/dL RDW (11.5-15.5) % Plt Count (150-450) k/uL MPV Neutrophils % % Lymphocytes % % Monocytes % % Eosinophils % % Basophils % % Neutrophils # (1.3-7.7) k/uL Lymphocytes # (1.0-4.8) k/uL Monocytes # (0-1.0) k/uL Eosinophils # (0-0.7) k/uL Basophils # (0-0.2) k/uL Manual Slide Review Hypochromasia Anisocytosis PT 12.9 H (10.0-12.5) sec INR 1.2 H (<1.2) APTT 31.8 H (22.0-30.0) sec VBG pH (7.31-7.41) VBG pCO2 (37-51) mmHg VBG HCO3 (24-28) mmol/L Sodium 135 L (137-145) mmol/L Potassium 5.0 (3.5-5.1) mmol/L Chloride 99 (98-107) mmol/L Carbon Dioxide 22 (22-30) mmol/L Anion Gap 14 mmol/L BUN 48 H (7-17) mg/dL Creatinine 1.75 H (0.52-1.04) mg/dL Est GFR (CKD-EPI)AfAm 31 (>60 ml/min/1.73 sqM) Est GFR (CKD-EPI)NonAf 27 (>60 ml/min/1.73 sqM) Glucose 186 H (74-99) mg/dL POC Glucose (mg/dL) 217 H (70-110) mg/dL POC Glu Assistant Professor ID [facility] Plasma Lactic Acid Efren (0.7-2.0) mmol/L Calcium 8.4 (8.4-10.2) mg/dL Magnesium 2.4 H (1.6-2.3) mg/dL Total Bilirubin 0.9 (0.2-1.3) mg/dL AST 49 H (14-36) U/L ALT 25 (4-34) U/L Alkaline Phosphatase 89 (38-126) U/L Troponin I (0.000-0.034) ng/mL NT-Pro-B Natriuret Pep 03550 pg/mL Total Protein 5.6 L (6.3-8.2) g/dL Albumin 2.9 L (3.5-5.0) g/dL TSH (0.465-4.680) mIU/L Urine Color Urine Appearance (Clear) Urine pH (5.0-8.0) Ur Specific [place] (1.001-1.035) Urine Protein (Negative) Urine Glucose (UA) (Negative) Urine Ketones (Negative) Urine Blood (Negative) Urine Nitrite (Negative) Urine Bilirubin (Negative) Urine Urobilinogen (<2.0) mg/dL Ur Leukocyte Esterase (Negative) 05/05/24 05/05/24 05/05/24 Range/Units 15:58 15:58 15:58 WBC (3.8-10.6) k/uL RBC (3.80-5.40) m/uL Hgb (11.4-16.0) gm/dL Hct (34.0-46.0) % MCV (80.0-100.0) fL MCH (25.0-35.0) pg MCHC (31.0-37.0) g/dL RDW (11.5-15.5) % Plt Count (150-450) k/uL MPV Neutrophils % % Lymphocytes % % Monocytes % % Eosinophils % % Basophils % % Neutrophils # (1.3-7.7) k/uL Lymphocytes # (1.0-4.8) k/uL Monocytes # (0-1.0) k/uL Eosinophils # (0-0.7) k/uL Basophils # (0-0.2) k/uL Manual Slide Review Hypochromasia Anisocytosis PT (10.0-12.5) sec INR (<1.2) APTT (22.0-30.0) sec VBG pH (7.31-7.41) VBG pCO2 (37-51) mmHg VBG HCO3 (24-28) mmol/L Sodium (137-145) mmol/L Potassium (3.5-5.1) mmol/L Chloride (98-107) mmol/L Carbon Dioxide (22-30) mmol/L Anion Gap mmol/L BUN (7-17) mg/dL Creatinine (0.52-1.04) mg/dL Est GFR (CKD-EPI)AfAm (>60 ml/min/1.73 sqM) Est GFR (CKD-EPI)NonAf (>60 ml/min/1.73 sqM) Glucose (74-99) mg/dL POC Glucose (mg/dL) (70-110) mg/dL POC Glu Assistant Professor ID Plasma Lactic Acid Efren (0.7-2.0) mmol/L Calcium (8.4-10.2) mg/dL Magnesium (1.6-2.3) mg/dL Total Bilirubin (0.2-1.3) mg/dL AST (14-36) U/L ALT (4-34) U/L Alkaline Phosphatase (38-126) U/L Troponin I 0.055 H* (0.000-0.034) ng/mL NT-Pro-B Natriuret Pep pg/mL Total Protein (6.3-8.2) g/dL Albumin (3.5-5.0) g/dL TSH 7.010 H (0.465-4.680) mIU/L Urine Color Light Yellow Urine Appearance Clear (Clear) Urine pH 5.0 (5.0-8.0) Ur Specific [place] 1.013 (1.001-1.035) Urine Protein Negative (Negative) Urine Glucose (UA) Negative (Negative) Urine Ketones Negative (Negative) Urine Blood Negative (Negative) Urine Nitrite Negative (Negative) Urine Bilirubin Negative (Negative) Urine Urobilinogen <2.0 (<2.0) mg/dL Ur Leukocyte Esterase Negative (Negative) 05/05/24 05/05/24 05/05/24 Range/Units 16:48 16:48 16:48 WBC 11.9 H (3.8-10.6) k/uL RBC 3.72 L (3.80-5.40) m/uL Hgb 9.7 L (11.4-16.0) gm/dL Hct 33.8 L (34.0-46.0) % MCV 90.9 (80.0-100.0) fL MCH 26.2 (25.0-35.0) pg MCHC 28.8 L (31.0-37.0) g/dL RDW 17.4 H (11.5-15.5) % Plt Count 72 L (150-450) k/uL MPV 11.0 Neutrophils % 88 % Lymphocytes % 6 % Monocytes % 5 % Eosinophils % 0 % Basophils % 0 % Neutrophils # 10.5 H (1.3-7.7) k/uL Lymphocytes # 0.7 L (1.0-4.8) k/uL Monocytes # 0.6 (0-1.0) k/uL Eosinophils # 0.0 (0-0.7) k/uL Basophils # 0.0 (0-0.2) k/uL Manual Slide Review Performed Hypochromasia Marked Anisocytosis Slight PT (10.0-12.5) sec INR (<1.2) APTT (22.0-30.0) sec VBG pH 7.12 L* (7.31-7.41) VBG pCO2 59 H (37-51) mmHg VBG HCO3 19 L (24-28) mmol/L Sodium (137-145) mmol/L Potassium (3.5-5.1) mmol/L Chloride (98-107) mmol/L Carbon Dioxide (22-30) mmol/L Anion Gap mmol/L BUN (7-17) mg/dL Creatinine (0.52-1.04) mg/dL Est GFR (CKD-EPI)AfAm (>60 ml/min/1.73 sqM) Est GFR (CKD-EPI)NonAf (>60 ml/min/1.73 sqM) Glucose (74-99) mg/dL POC Glucose (mg/dL) (70-110) mg/dL POC Glu Assistant Professor ID Plasma Lactic Acid Efren 8.0 H* (0.7-2.0) mmol/L Calcium (8.4-10.2) mg/dL Magnesium (1.6-2.3) mg/dL Total Bilirubin (0.2-1.3) mg/dL AST (14-36) U/L ALT (4-34) U/L Alkaline Phosphatase (38-126) U/L Troponin I (0.000-0.034) ng/mL NT-Pro-B Natriuret Pep pg/mL Total Protein (6.3-8.2) g/dL Albumin (3.5-5.0) g/dL TSH (0.465-4.680) mIU/L Urine Color Urine Appearance (Clear) Urine pH (5.0-8.0) Ur Specific [place] (1.001-1.035) Urine Protein (Negative) Urine Glucose (UA) (Negative) Urine Ketones (Negative) Urine Blood (Negative) Urine Nitrite (Negative) Urine Bilirubin (Negative) Urine Urobilinogen (<2.0) mg/dL Ur Leukocyte Esterase (Negative) Critical Care Time Critical Care Time: Yes Total Critical Care Time: 35 Disposition Clinical Impression: Congestive heart failure, JUAN ANTONIO (acute kidney injury), Hypothermia, Lactic acidosis Disposition: ADMITTED IP TO THIS HOSP Condition: Poor Is patient prescribed a controlled substance at d/c from ED?: No Referrals: Pepe Ruiz MD [Primary Care Provider] - 1-2 days Time of Disposition: 17:58
[2024-05-05 16:28] LABS: INR 1.2 (<1.2); Partial Thromboplastin Time 31.8 sec (22.0-30.0); Prothrombin Time 12.9 sec (10.0-12.5)
--- NOTE | 2024-05-05 16:40 | XR ---
EXAMINATION TYPE: XR chest 1V portable DATE OF EXAM: 05/05/2024 4:31 PM COMPARISON: Prior chest radiograph 02/20/2021. CLINICAL INDICATION: Female, 84 years old with history of suzy; [facility] TECHNIQUE: XR chest 1V portable Frontal view of the chest. FINDINGS: Lungs/Pleura: Azygous lobe and fissure. Biapical scarring. Small bilateral pleural effusions and joey cent lower lobe compressive atelectasis. No definite pneumothorax. Pulmonary vascularity: Prominence of the thoracic aortic arch. Heart/mediastinum: Left chest wall cardiac pacer device. Cardiomegaly. Musculoskeletal: No acute osseous pathology. Other findings: None IMPRESSION: Cardiomegaly and small bilateral pleural effusions suggesting pulmonary edema. [facility], , 05/05/2024 4:37 PM
[2024-05-05 16:51] LABS: ALT 25 U/L (4-34); AST 49 U/L (14-36); African American GFR (CKD) 31 (>60 ml/min/1.73 sqM); Albumin 2.9 g/dL (3.5-5.0); Alkaline Phosphatase 89 U/L (38-126); Anion Gap 14 mmol/L; Blood Urea Nitrogen 48 mg/dL (7-17); Calcium 8.4 mg/dL (8.4-10.2); Carbon Dioxide 22 mmol/L (22-30); Chloride 99 mmol/L (98-107); Glucose 186 mg/dL (74-99); Magnesium 2.4 mg/dL (1.6-2.3); Non-African American GFR(CKD) 27 (>60 ml/min/1.73 sqM); Sodium 135 mmol/L (137-145); Total Bilirubin 0.9 mg/dL (0.2-1.3); Total Protein 5.6 g/dL (6.3-8.2)
[2024-05-05 16:57] LABS: NT-Pro-B-Type Natriuretic Pept 11100 pg/mL
[2024-05-05 17:08] LABS: VBG PH 7.12 (7.31-7.41)
[2024-05-05 17:14] LABS: Anisocytosis Slight; Basophils % (A) 0 %; Eosinophils % (A) 0 %; HCT 33.8 % (34.0-46.0); HGB 9.7 gm/dL (11.4-16.0); Hypochromasia Marked; Lymphocytes # (A) 0.7 k/uL (1.0-4.8); Lymphocytes % (A) 6 %; MCH 26.2 pg (25.0-35.0); MCHC 28.8 g/dL (31.0-37.0); MCV 90.9 fL (80.0-100.0); Monocytes # (A) 0.6 k/uL (0-1.0); Monocytes % (A) 5 %; Neutrophils # (A) 10.5 k/uL (1.3-7.7); Neutrophils % (A) 88 %; RBC 3.72 m/uL (3.80-5.40); RDW 17.4 % (11.5-15.5); WBC 11.9 k/uL (3.8-10.6)
[2024-05-05 17:20] LABS: Appearance,Urine Clear (Clear); Bilirubin,Urine Negative (Negative); Blood,Urine Negative (Negative); Color,Urine Light Yellow; Glucose,Urine (UA) Negative (Negative); Ketones,Urine Negative (Negative); Leukocyte Esterase,Urine Negative (Negative); Nitrite,Urine Negative (Negative); Protein,Urine Negative (Negative); Specific Gravity,Urine 1.013 (1.001-1.035); Urobilinogen,Urine <2.0 mg/dL (<2.0)
[2024-05-05 17:28] LABS: Platelet Count 72 k/uL (150-450)
[2024-05-05] MEDS: SODIUM CHLORIDE 0.9% 1,000 ML IV SCH (17:29)
[2024-05-05] MEDS: methylPREDNISolone SOD SUCCI 125 MG/2 ML VIAL IV STA (17:29)
[2024-05-05] MEDS ORDERED: LORazepam 2 MG/ML INJ IV PRN (17:53)
[2024-05-05] MEDS ORDERED: ACETAMINOPHEN SUPPOSITORY 650 MG SUPP RECTAL PRN (17:53)
[2024-05-05 18:27] LABS: T4, Free (Free Thyroxine) 1.29 ng/dL (0.78-2.19)
[2024-05-05] MEDS: ONDANSETRON 4 MG/2 ML VIAL IVP PRN (18:42)
[2024-05-05] MEDS: MORPHINE SULFATE 2 MG/ML SYRINGE IV PRN (18:42)
[2024-05-06 01:16] VITALS: BP 104/84; TEMP 98.8
[2024-05-06 07:44] VITALS: PULSE 0; RESP 0
== END 2024-05-06 02:45 | disposition expired | DRG 951 ==
LOC: EC 15:21 → 4SSUR 17:54 → 5NMEDONC 05-06 00:13
PROVIDERS: ADMIT Family Medicine; ATTEND Family Medicine
DX: Z51.5 Encounter for palliative care (principal); E87.20 Acidosis, unspecified; Z66 Do not resuscitate; T68.XXXA Hypothermia, initial encounter; I11.0 Hypertensive heart disease with heart failure; N17.9 Acute kidney failure, unspecified; I50.9 Heart failure, unspecified; Z82.49 Family history of ischemic heart disease and other diseases of the circulatory system; Z88.8 Allergy status to other drugs, medicaments and biological substances; Z98.42 Cataract extraction status, left eye; Z98.41 Cataract extraction status, right eye
CPT/HCPCS: 36415; 51702; 71045; 80053; 81003; 82803; 83605; 83735; 83880; 84439; 84443; 84484; 85025; 85610; 85730; 87040; 93005; 96361; 96365; 96375; 96376; 99291